=== PATIENT | female | born 1980 | race Caucasian/White ===

== ENCOUNTER 2017-02-23 12:28 | Emergency (ER) | payer MEDICAID ==
[2017-02-23] MEDS ORDERED: guaiFENesin 100 mg/5 ml Syrup UD PO STA (13:35)
--- NOTE | 2017-02-23 13:37 | C.PDOC ---
History Of Present Illness 36 y/o female presents to the ED complaining of dry, non-productive cough x 1 week. She reports (+) sick contact at home with same viral syndrome. Patient denies taking any cold medication but states she has been drinking large amounts of tea with no relief. Patient notes some chest pain associated with cough but denies fever, chills, shortness of breath, throat pain, or other complaints. Time Seen by Provider: 02/23/17 13:30 Chief Complaint (Nursing): Chest Pain History Per: Patient History/Exam Limitations: no limitations Onset/Duration Of Symptoms: Days (7), Gradual, Persistent Current Symptoms Are (Timing): Still Present Quality: Squeezing Exacerbating Factors: Other (cough) Recent travel outside of the [place]: No Past Medical History Reviewed: Historical Data, Nursing Documentation, Vital Signs Vital Signs: Last Vital Signs Temp 98.1 F 02/23/17 13:39 Pulse 62 02/23/17 13:39 Resp 18 02/23/17 13:39 BP 113/70 02/23/17 13:39 Pulse Ox 100 02/23/17 13:39 - Medical History PMH: No Chronic Diseases Surgical History: Family History: States: Unknown Family Hx - Social History Hx Tobacco Use: No Hx Alcohol Use: Yes Hx Substance Use: No - Immunization History Hx Tetanus Toxoid Vaccination: No Hx Influenza Vaccination: No Hx Pneumococcal Vaccination: No Review Of Systems Except As Marked, All Systems Reviewed And Found Negative. Constitutional: Negative for: Fever, Chills ENT: Negative for: Throat Pain Cardiovascular: Positive for: Chest Pain Respiratory: Positive for: Cough. Negative for: Shortness of Breath, Sputum Physical Exam - Physical Exam Appears: Non-toxic, No Acute Distress Skin: Normal Color, Warm, Dry, No Rash Head: Atraumatic, Normacephalic Eye(s): bilateral: Normal Inspection, PERRL Ear(s): Bilateral: Normal Nose: Normal Oral Mucosa: Moist Throat: Normal, No Erythema, No Exudate Neck: Normal ROM, Supple Chest: Symmetrical, Other (digitally and positionally reproducible chest discomfort to bilateral parasternal areas) Cardiovascular: Rhythm Regular Respiratory: Normal Breath Sounds, No Rales, No Rhonchi, No Wheezing Gastrointestinal/Abdominal: Normal Exam, Soft, No Tenderness Extremity: Normal ROM, No Swelling Neurological/Psych: Oriented x3, Normal Speech, Normal Cognition ED Course And Treatment O2 Sat by Pulse Oximetry: 100 (ra) Pulse Ox Interpretation: Normal Medical Decision Making Medical Decision Making: digitally and positionally reproducable parasternal discomfort worse with cough , clear lungs, c/w costochondritis. has taken no cough meds @ home and + sick contacts with same. ? scant blood streaking may be f/u as opt. Plan: * Motrin PO, Robitussin PO Disposition Doctor Will See Patient In The: Office Counseled Patient/Family Regarding: Studies Performed, Diagnosis - Disposition Referrals: [facility] [Outside] Disposition: HOME/ ROUTINE Disposition Time: 13:37 Condition: GOOD Additional Instructions: bolsa de hielo encima del pecho 1/2 hora por hora, nada caliente Ibuprofeno 400-600 mg cada 6 horas javier necessario Dayquil/Nyquil javier dirijido Sigue en [facility] javier necessario. Instructions: Costochondritis (ED), Viral Syndrome (ED) Print Language: CITIZEN [place] - Clinical Impression Clinical Impression: Chest discomfort - Scribe Statement The provider has reviewed the documentation as recorded by the Scribe (Shazia Varghese) Provider Attestation: All medical record entries made by the Scribe were at my direction and personally dictated by me. I have reviewed the chart and agree that the record accurately reflects my personal performance of the history, physical exam, medical decision making, and the department course for this patient. I have also personally directed, reviewed, and agree with the discharge instructions and disposition.
[2017-02-23 13:40] VITALS: BP 113/70; PULSE 62; RESP 18; TEMP 98.1; O2SAT 100
[2017-02-23] MEDS ORDERED: guaiFENesin 100 mg/5 ml Syrup UD ONE (13:46)
== END 2017-02-23 14:05 | disposition home or self-care (01) ==
LOC: C.ER 12:28
DX: R07.89 Other chest pain (principal)

== ENCOUNTER 2018-03-17 10:57 | Emergency (ER) | payer MEDICAID ==
[2018-03-17 11:12] VITALS: BMI 25.3
[2018-03-17 11:15] VITALS: RESP 18; O2SAT 100
[2018-03-17 12:54] LABS: BASO % 0.8 % (0.0-2.0); EOS # 0.1 K/uL (0.0-0.7); EOS % 1.5 % (0.0-4.0); HEMOGLOBIN 10.5 g/dL (11.0-16.0); LYMPH % 37.6 % (20.0-40.0); MEAN CORPUSCULAR HEMOGLOBIN 23.4 pg (27.0-31.0); MEAN CORPUSCULAR HGB CONC 32.2 g/dL (33.0-37.0); MEAN PLATELET VOLUME 8.8 fL (7.2-11.7); MONO # 0.4 K/uL (0.0-0.8); MONO % 7.5 % (0.0-10.0); NEUT # 2.7 K/uL (1.8-7.0); NEUT % 52.6 % (50.0-75.0); NRBC % 0.1 % (0.0-2.0); RBC 4.51 Mil/uL (3.80-5.20); RED CELL DISTRIBUTION WIDTH 17.9 % (11.5-14.5); WHITE BLOOD COUNT 5.2 K/uL (4.8-10.8)
[2018-03-17 12:57] LABS: MEAN CELL VOLUME 72.7 fL (81.0-99.0)
[2018-03-17 13:02] LABS: PROTHROMBIN TIME 11.6 SECONDS (9.7-12.2)
[2018-03-17 13:08] LABS: BLOOD UREA NITROGEN 12 mg/dL (7-17); GFR AFRICAN-AMERICAN > 60; GFR NON-AFRICAN AMERICAN > 60
[2018-03-17 13:09] LABS: ALB/GLOB RATIO 1.2 (1.0-2.1); ALBUMIN 3.9 g/dL (3.5-5.0); ALT/SGPT 15 U/L (9-52); AST/SGOT 23 U/L (14-36); CALCIUM 9.1 mg/dl (8.6-10.4)
--- NOTE | 2018-03-17 13:20 | C.PDOC ---
History Of Present Illness Patient presents to ED with c/o generalized body pain, leg swelling for 3 days and right sided abdominal pain for 1 week. Patient reports fever, headache and decreased appetite with associated lightheadedness. Patient admits to recent travel 11/2017. Patient reports that she had US and tests done on the abdomen and they showed ovarian cysts. Denies vomiting, nausea, back pain, chest pain, sob or any other complaints at this time. Time Seen by Provider: 03/17/18 11:47 Chief Complaint (Nursing): Lower Extremity Problem/Injury History Per: Patient History/Exam Limitations: no limitations Onset/Duration Of Symptoms: Days Current Symptoms Are (Timing): Still Present Past Medical History Reviewed: Historical Data, Nursing Documentation, Vital Signs Vital Signs: Last Vital Signs Temp 98.1 F 03/17/18 15:49 Pulse 76 03/17/18 15:49 Resp 18 03/17/18 15:49 BP 138/96 H 03/17/18 15:49 Pulse Ox 100 03/17/18 15:53 - Medical History PMH: No Chronic Diseases Surgical History: Family History: States: No Known Family Hx - Social History Hx Tobacco Use: No Hx Alcohol Use: Yes Hx Substance Use: No - Immunization History Hx Tetanus Toxoid Vaccination: No Hx Influenza Vaccination: No Hx Pneumococcal Vaccination: No Review Of Systems Except As Marked, All Systems Reviewed And Found Negative. Constitutional: Positive for: Fever. Negative for: Chills Cardiovascular: Positive for: Light Headedness. Negative for: Chest Pain Respiratory: Negative for: Shortness of Breath Gastrointestinal: Positive for: Abdominal Pain. Negative for: Nausea, Vomiting Musculoskeletal: Positive for: Other (Generalized body pain) Skin: Negative for: Rash Physical Exam - Physical Exam Appears: Non-toxic, No Acute Distress Skin: Warm, Dry, No Rash Head: Atraumatic, Normacephalic Eye(s): bilateral: Normal Inspection, PERRL, EOMI Oral Mucosa: Moist Throat: No Erythema, No Exudate Neck: Normal ROM, Supple Chest: Symmetrical, No Tenderness, No Ecchymosis, No Subcutaneous Emphysema Cardiovascular: Rhythm Regular, No Friction Rub, No Murmur Respiratory: Normal Breath Sounds, No Rales, No Rhonchi, No Wheezing Gastrointestinal/Abdominal: Bowel Sounds (active), Soft, No Tenderness, No Distention, No Guarding, No Rebound, No Hernia Back: No CVA Tenderness Extremity: Normal ROM, Tenderness (vague LE tenderness bilaterally), No Pedal Edema, Capillary Refill (<seconds), No Swelling Extremity: Bilateral: Normal Color And Temperature Pulses: Left Dorsalis Pedis: Normal, Right Dorsalis Pedis: Normal Neurological/Psych: Oriented x3, Normal Speech, Normal Cognition, Normal Motor, Normal Sensation Gait: Steady ED Course And Treatment - Laboratory Results Result Diagrams: 03/17/18 12:46 03/17/18 12:46 O2 Sat by Pulse Oximetry: 100 (RA) Pulse Ox Interpretation: Normal Medical Decision Making Medical Decision Making: Plan: Toradol, UA Venous Doppler of the bilateral lower ext ordered which were both negative. On re-exam, the patient reports improvement of symptoms. Lungs are CTA, heart is RRR, abdomen is soft, non-tender and the patient is tolerating PO well. ambulatory in the ED with steady gait. Follow up with the medical doctor within 1-2 days. Return if worsened. Disposition - Disposition Referrals: Juliana Paul [Staff Provider] - Ulices Birmingham MD [Staff Provider] - Jaden Soria [Staff Provider] - Disposition: HOME/ ROUTINE Disposition Time: 15:49 Condition: GOOD Additional Instructions: Follow up with the medical doctor within 1-2 days. Return if worsened. Prescriptions: Naproxen [Naprosyn] 500 mg PO BID #20 tab predniSONE [Prednisone] 10 mg PO BID #10 tab Instructions: Dependent Edema (DC) Forms: [facility] (Thai), Work Excuse - Clinical Impression Clinical Impression: Leg edema - PA / HEADING MATCHER AND ASSEMBLER / Resident Statement MD/DO has reviewed & agrees with the documentation as recorded. - Scribe Statement The provider has reviewed the documentation as recorded by the Krisibe Aretha Lutz All medical record entries made by the Janelle were at my direction and personally dictated by me. I have reviewed the chart and agree that the record accurately reflects my personal performance of the history, physical exam, medical decision making, and the department course for this patient. I have also personally directed, reviewed, and agree with the discharge instructions and disposition.
[2018-03-17 13:24] LABS: HCG,QUALITATIVE URINE NEGATIVE (NEGATIVE)
[2018-03-17 13:25] LABS: SQUAMOUS EPITHIAL < 1 /hpf (0-5); URINE BILIRUBIN NEGATIVE (NEGATIVE); URINE BLOOD NEGATIVE (NEGATIVE); URINE CLARITY Clear (Clear); URINE COLOR Colorless (YELLOW); URINE GLUCOSE (UA) NORMAL (Normal); URINE LEUKOCYTE ESTERASE NEG Leu/uL (Negative); URINE PROTEIN NEGATIVE (NEGATIVE); URINE UROBILINOGEN NORMAL mg/dL (0.2-1.0)
[2018-03-17 13:36] LABS: B-TYPE NATRIURETIC PEPTIDE 33.1 pg/mL (0-450)
[2018-03-17] MEDS ORDERED: Dexamethasone 4 mg/1 ml IVP STA (14:25)
[2018-03-17] MEDS ORDERED: Dexamethasone 4 mg/1 ml ONE (14:39)
[2018-03-17 15:50] VITALS: BP 138/96; PULSE 76; TEMP 98.1
--- NOTE | 2018-03-18 09:34 | VASCLAB ---
PROCEDURE: Lower Extremity Venous Duplex Exam. HISTORY: leg pain PRIORS: None. TECHNIQUE: Bilateral common femoral, femoral, popliteal and posterior tibial, peroneal and great saphenous veins were evaluated. Flow was assessed with color Doppler, compressibility, assessment of phasic flow and augmentation response. Report prepared by HERNANDEZ Swartz, RVT FINDINGS: RIGHT: 1. Common Femoral Vein: 1.1. Compressibility - Fully compressible: Thrombus - None : Flow - Phasic: Augmentation -Normal: Reflux - None. 2. Femoral Vein: 2.1. Compressibility - Fully compressible: Thrombus - None : Flow - Phasic: Augmentation -Normal: Reflux - None. 3. Popliteal Vein: 3.1. Compressibility - Fully compressible: Thrombus - None : Flow - Phasic: Augmentation -Normal: Reflux - None. 4. Posterior Tibial Vein: 4.1. Compressibility - Fully compressible: Thrombus - None: Flow - Phasic: Augmentation -Normal: Reflux - None. 5. Peroneal Vein: 5.1. Compressibility - Fully compressible: Thrombus - None: Flow - Phasic: Augmentation -Normal: Reflux - None. 6. Great Saphenous Vein: 6.1. Compressibility - Fully compressible: Thrombus - None: Flow - Phasic: Augmentation - Normal: Reflux - None. LEFT: 1. Common Femoral Vein: 1.1. Compressibility - Fully compressible: Thrombus - None: Flow - Phasic: Augmentation -Normal: Reflux - None. 2. Femoral Vein: 2.1. Compressibility - Fully compressible: Thrombus - None: Flow - Phasic: Augmentation -Normal: Reflux - None. 3. Popliteal Vein: 3.1. Compressibility - Fully compressible: Thrombus - None : Flow - Phasic: Augmentation -Normal: Reflux - None. 4. Posterior Tibial Vein: 4.1. Compressibility - Fully compressible: Thrombus - None: Flow - Phasic: Augmentation -Normal: Reflux - None. 5. Peroneal Vein: 5.1. Compressibility - Fully compressible: Thrombus - None: Flow - Phasic: Augmentation -Normal: Reflux - None. 6. Great Saphenous Vein: 6.1. Compressibility - Fully compressible: Thrombus - None: Flow - Phasic: Augmentation - Normal: Reflux - None. OTHER FINDINGS: Right: None significant. Left: None significant. IMPRESSION: Right: No evidence of deep or superficial vein thrombosis of the right lower extremity. Normal valve function noted of the right side. Left: No evidence of deep or superficial vein thrombosis of the left lower extremity. Normal valve function noted of the left side.
== END 2018-03-17 16:34 | disposition home or self-care (01) ==
LOC: C.ER 10:57
DX: R60.0 Localized edema (principal)
CPT/HCPCS: 80053; 81001; 82553; 83880; 84703; 85025; 85610; 85730; 93970; 96374; 96375; 99284; J1100; J1885

== ENCOUNTER 2018-10-29 15:21 | Emergency (ER) | payer OTHER, MEDICAID ==
[2018-10-29 15:22] VITALS: BMI 25.3
[2018-10-29 15:33] VITALS: TEMP 98.5; O2SAT 100
[2018-10-29] MEDS ORDERED: Oxycodone/Acetaminophen 5/325 mg Tab PO STA (16:28)
[2018-10-29] MEDS ORDERED: Oxycodone/Acetaminophen 5/325 mg Tab ONE (16:46)
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
[2018-10-29 18:19] VITALS: BP 132/85; PULSE 60; RESP 18
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
== END 2018-10-29 19:10 | disposition home or self-care (01) ==
LOC: C.ER 15:21
DX: S16.1XXA Strain of muscle, fascia and tendon at neck level, initial encounter (principal); S39.012A Strain of muscle, fascia and tendon of lower back, initial encounter; V49.59XA Passenger injured in collision with other motor vehicles in traffic accident, initial encounter; Y92.410 Unspecified street and highway as the place of occurrence of the external cause
CPT/HCPCS: 70450; 72100; 72125; 96372; 99285; J1885

== ENCOUNTER 2019-02-05 02:53 | Emergency (ER) | payer MEDICAID, OTHER ==
[2019-02-05 02:54] VITALS: BMI 25.3
[2019-02-05 03:10] VITALS: O2SAT 100
[2019-02-05 03:29] LABS: HCG,QUALITATIVE URINE NEGATIVE (NEGATIVE)
[2019-02-05 03:34] LABS: SQUAMOUS EPITHIAL 6 /hpf (0-5); URINE BACTERIA RARE (<OCC); URINE BILIRUBIN NEGATIVE (NEGATIVE); URINE BLOOD NEGATIVE (NEGATIVE); URINE CLARITY Hazy (Clear); URINE COLOR Yellow (YELLOW); URINE GLUCOSE (UA) NORMAL (Normal); URINE LEUKOCYTE ESTERASE 3+ Leu/uL (Negative); URINE PROTEIN NEGATIVE (NEGATIVE); URINE UROBILINOGEN NORMAL mg/dL (0.2-1.0)
[2019-02-05 04:22] LABS: BASO # 0.1 K/uL (0.0-0.2); BASO % 0.7 % (0.0-2.0); EOS # 0.1 K/uL (0.0-0.7); EOS % 0.7 % (0.0-4.0); HEMOGLOBIN 10.1 g/dL (11.0-16.0); LYMPH # 2.3 K/uL (1.0-4.3); LYMPH % 25.7 % (20.0-40.0); MEAN CELL VOLUME 71.7 fL (81.0-99.0); MEAN CORPUSCULAR HEMOGLOBIN 22.5 pg (27.0-31.0); MEAN CORPUSCULAR HGB CONC 31.3 g/dL (33.0-37.0); MEAN PLATELET VOLUME 8.7 fL (7.2-11.7); MONO # 0.8 K/uL (0.0-0.8); MONO % 9.3 % (0.0-10.0); NEUT # 5.7 K/uL (1.8-7.0); NEUT % 63.6 % (50.0-75.0); RBC 4.51 Mil/uL (3.80-5.20); RED CELL DISTRIBUTION WIDTH 19.2 % (11.5-14.5); WHITE BLOOD COUNT 8.9 K/uL (4.8-10.8)
[2019-02-05] MEDS ORDERED: Sodium Chloride 0.9% 1,000 ML IV ONE (04:25)
[2019-02-05 04:38] LABS: ALB/GLOB RATIO 1.6 (1.0-2.1); ALBUMIN 4.1 g/dL (3.5-5.0); ALT/SGPT 15 U/L (9-52); AST/SGOT 16 U/L (14-36); BLOOD UREA NITROGEN 12 mg/dL (7-17); CALCIUM 8.9 mg/dl (8.6-10.4); GFR NON-AFRICAN AMERICAN > 60
--- NOTE | 2019-02-05 05:38 | C.PDOC ---
History Of Present Illness 38 year old female presents to the emergency department with complaints of pain to the suprapubic area since last night. Patient reports vomiting once but denies nausea, constipation, dysuria, or hematuria. Denies vaginal discharge or bleeding. Time Seen by Provider: 02/05/19 03:14 Chief Complaint (Nursing): Abdominal Pain History Per: Patient History/Exam Limitations: no limitations Onset/Duration Of Symptoms: Days (1) Current Symptoms Are (Timing): Still Present Location Of Pain/Discomfort: Suprapubic Quality Of Discomfort: "Pain" Associated Symptoms: Vomiting. denies: Fever, Chills, Nausea, Diarrhea, Urinary Symptoms Past Medical History Reviewed: Historical Data, Nursing Documentation, Vital Signs Vital Signs: Last Vital Signs Temp 97.9 F 02/05/19 03:04 Pulse 80 02/05/19 03:04 Resp 20 02/05/19 03:04 BP 147/84 02/05/19 03:04 Pulse Ox 100 02/05/19 03:04 - Medical History PMH: Arthritis Surgical History: Family History: States: No Known Family Hx - Social History Hx Tobacco Use: No Hx Alcohol Use: Yes Hx Substance Use: No - Immunization History Hx Tetanus Toxoid Vaccination: No Hx Influenza Vaccination: Yes (Aug 2018) Hx Pneumococcal Vaccination: No Review Of Systems Except As Marked, All Systems Reviewed And Found Negative. Constitutional: Negative for: Fever, Chills Respiratory: Negative for: Cough, Shortness of Breath Gastrointestinal: Positive for: Vomiting, Abdominal Pain. Negative for: Nausea, Diarrhea Genitourinary: Negative for: Dysuria, Hematuria Physical Exam - Physical Exam Appears: Non-toxic, No Acute Distress Skin: Normal Color, Warm, Dry Head: Atraumatic, Normacephalic Eye(s): bilateral: Normal Inspection, PERRL, EOMI Nose: Normal Oral Mucosa: Moist Neck: Normal, Supple Chest: Symmetrical, No Tenderness Cardiovascular: Rhythm Regular, No Murmur Respiratory: Normal Breath Sounds, No Rales, No Rhonchi, No Wheezing Gastrointestinal/Abdominal: Soft, Tenderness (right-sided suprapubic tenderness), No Guarding, No Rebound Pelvic: Normal External Exam, Other ([address] RN Kristina Brooks) Extremity: Normal ROM Neurological/Psych: Oriented x3, Normal Speech, Normal Cognition ED Course And Treatment - Laboratory Results Result Diagrams: 02/05/19 04:19 02/05/19 04:19 Lab Results: Total Bilirubin 0.2 mg/dL (0.2-1.3) 02/05/19 04:19 AST 16 U/L (14-36) 02/05/19 04:19 ALT 15 U/L (9-52) 02/05/19 04:19 Alkaline Phosphatase 57 U/L (38-126) 02/05/19 04:19 Total Protein 6.7 g/dL (6.3-8.3) 02/05/19 04:19 Albumin 4.1 g/dL (3.5-5.0) 02/05/19 04:19 Globulin 2.5 gm/dL (2.2-3.9) 02/05/19 04:19 Albumin/Globulin Ratio 1.6 (1.0-2.1) 02/05/19 04:19 Urine Color Yellow (YELLOW) 02/05/19 03:20 Urine Clarity Hazy (Clear) 02/05/19 03:20 Urine pH 7.0 (5.0-8.0) 02/05/19 03:20 Ur Specific [place] 1.008 (1.003-1.030) 02/05/19 03:20 Urine Protein Negative mg/dL (NEGATIVE) 02/05/19 03:20 Urine Glucose (UA) Normal mg/dL (Normal) 02/05/19 03:20 Urine Ketones Negative mg/dL (NEGATIVE) 02/05/19 03:20 Urine Blood Negative (NEGATIVE) 02/05/19 03:20 Urine Nitrate Negative (NEGATIVE) 02/05/19 03:20 Urine Bilirubin Negative (NEGATIVE) 02/05/19 03:20 Urine Urobilinogen Normal mg/dL (0.2-1.0) 02/05/19 03:20 Ur Leukocyte Esterase 3+ Rola/uL (Negative) H 02/05/19 03:20 Urine WBC (Auto) 222 /hpf (0-5) H 02/05/19 03:20 Urine RBC (Auto) 6 /hpf (0-3) H 02/05/19 03:20 Ur Squamous Epith Cells 6 /hpf (0-5) H 02/05/19 03:20 Urine Bacteria Rare (<OCC) 02/05/19 03:20 Urine HCG, Qual Negative (NEGATIVE) 02/05/19 03:20 Urine HCG, Qual Negative (NEGATIVE) 02/05/19 03:20 O2 Sat by Pulse Oximetry: 100 (RA) Pulse Ox Interpretation: Normal Medical Decision Making Medical Decision Making: Plan: Chemistry CBC Macrobid 100mg PO NaCl IV Fluids Toradol 30mg IVP Urine Culture Urinalysis Urine Pt feels better, denies pain at this time. All labs results d/w pt/. Abd remains soft, NT. Pt will follow up with PMD / Ob gyne. will dc with PO abx and motrin Disposition Counseled Patient/Family Regarding: Diagnosis, Need For Followup - Disposition Referrals: Radha Paul MD [Staff Provider] - Disposition: HOME/ ROUTINE Disposition Time: 06:27 Condition: STABLE Additional Instructions: Please follow up with PMD Take medications as prescribed Increase fluids Return to ER if worse Prescriptions: Ibuprofen [Motrin] 600 mg PO Q6H #20 tab Nitrofurantoin Macrocrystals [Macrobid] 1 cap PO BID #14 cap Instructions: Urinary Tract Infection, Adult (DC) Forms: [employer] (Malaysian) - Clinical Impression Clinical Impression: UTI (urinary tract infection) - PA / KNOCKER OUT / Resident Statement MD/DO has reviewed & agrees with the documentation as recorded. - Scribe Statement The provider has reviewed the documentation as recorded by the Scribe All medical record entries made by the Scribe were at my direction and personally dictated by me. I have reviewed the chart and agree that the record accurately reflects my personal performance of the history, physical exam, medical decision making, and the department course for this patient. I have also personally directed, reviewed, and agree with the discharge instructions and di sposition.
[2019-02-05 06:30] VITALS: BP 118/74; PULSE 70; RESP 16; TEMP 98
== END 2019-02-05 06:41 | disposition home or self-care (01) ==
LOC: C.ER 02:53
DX: N39.0 Urinary tract infection, site not specified (principal)
CPT/HCPCS: 80053; 81001; 83735; 84100; 84703; 85025; 87086; 96361; 96374; 99284; J1885; J7030